=== PATIENT | female | born 1970 | race Caucasian/White ===

== ENCOUNTER 2024-05-08 09:08 | Emergency (ER) | payer BC ==
[2024-05-08] MEDS ORDERED: LABETALOL 20 MG/4ML SYRINGE IV ONE (09:38)
[2024-05-08 09:54] LABS: Absolute Lymphocytes (CBC) 1.6 K/uL (0.7-4.9); Absolute Monocytes 0.5 K/uL (0.1-1.3); Absolute Neutrophil 5.3 K/uL (1.8-8.0); Basophils % 0.6 % (0-1.3); Eosinophils % 0.1 % (0-4.4); Hematocrit 43.6 % (36.0-45.0); Hemoglobin 15.2 g/dL (12.0-15.0); Lymphocytes % 21.3 % (15.3-44.8); MCH 29.9 pg (27.0-35.0); MCHC 34.8 g/dL (32.0-36.0); MPV 7.5 fL (7.6-11.3); Monocytes % 6.2 % (3.3-12.3); Neutrophils % 71.8 % (41.7-73.7); Nucleated Red Blood Cells % 0.1 % (0-0); Platelets 253 thou/uL (152-406); RBC Red Blood Cell Count 5.07 M/uL (3.86-4.86); Red Cell Distribution Width 13.6 % (12.1-15.2)
--- NOTE | 2024-05-08 10:07 | RAD REPORT ---
EXAM DESCRIPTION: CT - Head Brain Wo Cont - 05/08/2024 9:48 am CLINICAL HISTORY: HEADACHE COMPARISON: No comparisons TECHNIQUE: All CT scans are performed using dose optimization technique as appropriate and may inclu de automated exposure control or mA/KV adjustment according to patient size. FINDINGS: No intracranial hemorrhage, hydrocephalus or extra-axial fluid collection.No areas of brai n edema or evidence of midline shift. The paranasal sinuses and mastoids are clear. The calvarium is intact. IMPRESSION: No acute intracranial abnormality.
--- NOTE | 2024-05-08 10:07 | RAD REPORT ---
EXAM DESCRIPTION: RAD - Chest Single View - 05/08/2024 10:00 am CLINICAL HISTORY: PALPITATIONS COMPARISON: CHEST SINGLE VIEW dated 02/03/2010 FINDINGS: Lines: None. Lungs: No evidence of edema or pneumonia. Pleural: No significant pleural effusions or pneumothorax. Cardiac: The heart size is within normal limits. Mediastinum: Within normal limits. Bones: No acute fractures. Other: None IMPRESSION: No acute cardiopulmonary disease.
[2024-05-08 10:43] LABS: Anion Gap 6.8 mEq/L (5.0-15.0); Potassium 3.8 mEq/L (3.5-5.1); Troponin High Sensitivity 7.1 pg/mL (<58.9)
--- NOTE | 2024-05-08 11:11 | ER ---
Nurse's Notes [facility] Name: Coral Escoto Age: 53 yrs Sex: Female : 1970 Arrival Date: 05/08/2024 Time: 09:08 Bed 19 Private MD: Diagnosis: Essential (primary) hypertension;Headache;Palpitations Presentation: 05/08 09:30 Chief complaint: Patient states: she had just left her dr office with high blood ap3 pressure and elevated heart rate. patient also reports memory issues like fogginess for a few days, vision changes for three weeks and reports her bilateral hands and feet feeling tingly intermittently for an unknown amount of time. Coronavirus screen: At this time, the client does not indicate any symptoms associated with coronavirus-19. Ebola Screen: No symptoms or risks identified at this time. Initial Sepsis Screen: Does the patient meet any 2 criteria? HR > 90 bpm. Does the patient have a suspected source of infection? No. Patient's initial sepsis screen is negative. Risk Assessment: Do you want to hurt yourself or someone else? Patient reports no desire to harm self or others. Onset of symptoms is unknown. 09:30 Method Of Arrival: Ambulatory ap3 09:30 Acuity: JAX 2 ap3 Triage Assessment: 09:32 General: Appears in no apparent distress. Behavior is calm, cooperative, appropriate ap3 for age. Pain: Complains of pain in generalized body discomfort. Neuro: Level of Consciousness is awake, alert, obeys commands, Oriented to person, place, time, situation, Gait is steady, Speech is normal. Neuro: Reports blurred vision since unknown amount of time brain fog. Cardiovascular: Patient's skin is warm and dry. Respiratory: Airway is patent Respiratory effort is even, unlabored, Respiratory pattern is regular, symmetrical. Historical: - Allergies: 09:31 Tape; ap3 - Home Meds: 09:31 Lexapro Oral [Active]; ap3 - PMHx: 09:31 Hypertensive disorder; Hypothyroidism; Anxiety; ap3 - Immunization history:: Client reports receiving the 2nd dose of the Covid vaccine. - Social history:: Smoking status: Patient reports the use of cigarette tobacco products, smokes two packs cigarettes per day. Screenin:[facility] ED Fall Risk Assessment (Adult) History of falling in the last 3 months, db including since admission No falls in past 3 months (0 pts) Confusion or Disorientation No (0 pts) Intoxicated or Sedated No (0 pts) Impaired Gait No (0 pts) Mobility Assist Device Used No (0 pt) Altered Elimination No (0 pt) Score/Fall Risk Level 0 - 2 = Low Risk Oriented to surroundings, Maintained a safe environment. Abuse screen: Denies threats or abuse. Denies injuries from another. Nutritional screening: No deficits noted. Tuberculosis screening: No symptoms or risk factors identified. Assessment: 09:57 General: Appears in no apparent distress. comfortable, well groomed, well developed, kc6 Behavior is calm, cooperative, appropriate for age. Pain: Denies pain. Neuro: Level of Consciousness is awake, alert, obeys commands, Oriented to person, place, time, situation, Appropriate for age Reports blurred vision dizziness, paresthesias in right arm and left arm. Cardiovascular: Reports palpitations, Denies chest pain, shortness of breath, Capillary refill < 3 seconds. Respiratory: Airway is patent Trachea midline Respiratory effort is even, unlabored, Respiratory pattern is regular, symmetrical. GI: No signs and/or symptoms were reported involving the gastrointestinal system. : No signs and/or symptoms were reported regarding the genitourinary system. EENT: No signs and/or symptoms were reported regarding the EENT system. Derm: No signs and/or symptoms reported regarding the dermatologic system. Skin is intact, is healthy with good turgor, Skin is pink, warm \T\ dry. Musculoskeletal: No signs and/or symptoms reported regarding the musculoskeletal system. Circulation, motion, and sensation intact. Capillary refill < 3 seconds, Range of motion: intact in all extremities. 10:51 Reassessment: Patient appears in no apparent distress at this time. No changes from kc6 previously documented assessment. Patient and/or family updated on plan of care and expected duration. Pain level reassessed. Patient is alert, oriented x 3, equal unlabored respirations, skin warm/dry/pink. 11:17 Reassessment: Patient appears in no apparent distress at this time. Patient states db feeling better. Patient states symptoms have improved. Vital Signs: 09:30 BP 199 / 104; Pulse 101; Resp 19; Pulse Ox 98% on R/A; Weight 55.34 kg; ap3 09:30 BP 175 / 92; Pulse 90; Resp 16; Pulse Ox 95% on R/A; db 10:10 BP 178 / 98; kc6 10:51 BP 171 / 91; Pulse 70; Resp 18 S; Pulse Ox 97% on R/A; kc6 ED Course: 09:12 Patient arrived in ED. mg5 09:13 Kye Padilla DO is Attending Physician. ms3 09:16 Erika Tran, RN is Primary Nurse. kc6 09:31 Triage completed. ap3 09:34 Inserted saline lock: 20 gauge in right forearm, using aseptic technique. Blood db collected. Flushed with 10 mL NS. 09:35 Arm band placed on right wrist. ap3 09:35 Patient has correct armband on for positive identification. Bed in low position. Call ap3 light in reach. Side rails up X 1. Adult w/ patient. Client placed on continuous cardiac and pulse oximetry monitoring. NIBP monitoring applied. microgrinder operator on. Pulse ox on. NIBP on. 09:50 CT Head Brain wo Cont In Process Unspecified. EDMS 10:01 XRAY Chest (1 view) In Process Unspecified. EDMS 11:17 No provider procedures requiring assistance completed. IV discontinued, intact, db bleeding controlled, No redness/swelling at site. 11:17 Provided Education on: DISCHARGE AND FOLLOWUP. db Administered Medications: 09:56 Not Given (Hemodynamic Parameters): mg IV at calculated rate once kc6 Medication: 09:51 VIS not applicable for this client. db Outcome: 11:11 Discharge ordered by MD. ms3 11:17 Discharged to home ambulatory, with family, db 11:17 Condition: stable 11:17 Discharge instructions given to patient, family, Instructed on discharge instructions, follow up and referral plans. 11:18 Patient left the ED. db Signatures: Dispatcher [employer] EDMS Caryl Doan RN RN ap3 Kye Padilla DO DO ms3 Erika Tran, RN Blanca Lees RN RN Sofi Hernandez mg5
--- NOTE | 2024-05-08 11:11 | EDPHYS ---
Physician Documentation [facility] Name: Coral Escoto Age: 53 yrs Sex: Female : 1970 Arrival Date: 05/08/2024 Time: 09:08 Bed 19 Private MD: ED Physician Kye Padilla HPI: 05/08 11:13 This 53 yrs old Female presents to ER via Ambulatory with complaints of Memory Loss, ms3 High Blood Pressure, Dizziness. 11:13 53-year-old female with past medical history of hypertension, hypothyroidism, anxiety ms3 presents to the emergency department for headache, palpitations, nausea that been ongoing for 2 days. Patient denies shortness of breath. Patient states her headache is a 3/10. She denies any alleviating or inciting factors. Historical: - Allergies: :31 Tape; ap3 - Home Meds: :31 Lexapro Oral [Active]; ap3 - PMHx: 09:31 Hypertensive disorder; Hypothyroidism; Anxiety; ap3 - Immunization history:: Client reports receiving the 2nd dose of the Covid vaccine. - Social history:: Smoking status: Patient reports the use of cigarette tobacco products, smokes two packs cigarettes per day. ROS: 11:13 Constitutional: Negative for fever, and chills. Neck: Negative for injury, pain, and ms3 swelling, Respiratory: Negative for shortness of breath, cough, wheezing, and pleuritic chest pain, 11:13 MS/Extremity: Negative for injury and deformity, Skin: Negative for injury, rash, and discoloration, 11:13 Cardiovascular: Positive for palpitations, Exam: 10:42 ECG was reviewed by the Attending Physician. ms3 11:13 Radiologist reports: CT head negative ms3 11:13 Constitutional: This is a well developed, well nourished patient who is awake, alert, and in no acute distress. Head/Face: Normocephalic, atraumatic. Neck: Trachea midline, no cervical lymphadenopathy. Supple, full range of motion without nuchal rigidity, or vertebral point tenderness. No Meningismus. Chest/axilla: Normal chest wall appearance and motion. Nontender with no deformity. Cardiovascular: Regular rate and rhythm with a normal S1 and S2. No gallops, murmurs, or rubs. Normal PMI, no JVD. No pulse deficits. Respiratory: Lungs have equal breath sounds bilaterally, clear to auscultation and percussion. No rales, rhonchi or wheezes noted. No increased work of breathing, no retractions or nasal flaring. Abdomen/GI: Soft, non-tender, with normal bowel sounds. No distension or tympany. No guarding or rebound. No evidence of tenderness throughout. Skin: Warm, dry with normal turgor. Normal color with no rashes, no lesions, and no evidence of cellulitis. MS/ Extremity: Pulses equal, no cyanosis. Neurovascular intact. Full, normal range of motion. Vital Signs: 09:30 BP 199 / 104; Pulse 101; Resp 19; Pulse Ox 98% on R/A; Weight 55.34 kg; ap3 09:30 BP 175 / 92; Pulse 90; Resp 16; Pulse Ox 95% on R/A; db 10:10 BP 178 / 98; kc6 10:51 BP 171 / 91; Pulse 70; Resp 18 S; Pulse Ox 97% on R/A; kc6 MDM: 09:47 Patient medically screened. ms3 11:12 Differential diagnosis: metabolic disorder, ICH vs Arrhythmia vs PA. TNKase ms3 (Tenecteplase) Screening: Not Applicable. Data reviewed: vital signs, nurses notes, lab test result(s), EKG, radiologic studies, and as a result, I will discharge patient. Independent interpretation of the following test(s) in the Emergency Department EKG: See my EKG interpretation above X-Ray: My interpretation is CXR image reviewed by me does not reveal pulmonary edema. Care significantly affected by the following chronic conditions: Hypertension. Counseling: I had a detailed discussion with the patient and/or guardian regarding the historical points, exam findings, and any diagnostic results supporting the discharge/admit diagnosis, lab results, radiology results, the need for outpatient follow up, to return to the emergency department if symptoms worsen or persist or if there are any questions or concerns that arise at home. Special discussion: Based on the patient's history, exam, and Dx evaluation, there is no indication for emergent intervention or inpatient Tx. It is understood by the patient/guardian that if the Sx's persist or worsen they need to return immediately for re-evaluation. ED course: Discussed labs and imaging with patient and her . Patient to follow-up with her primary care physician in 2 to 3 days. Patient understands and agrees with plan. All questions were answered. Return precautions discussed include worsening symptoms, or any other concerns. 05/08 09:36 Order name: Basic Metabolic Panel; Complete Time: 10:43 ms3 05/08 09:36 Order name: CBC with Diff; Complete Time: 10:28 ms3 05/08 09:36 Order name: Magnesium; Complete Time: 10:43 ms3 05/08 09:36 Order name: Troponin HS; Complete Time: 10:43 ms3 05/08 09:36 Order name: XRAY Chest (1 view); Complete Time: 10:28 ms3 05/08 09:36 Order name: CT Head Brain wo Cont; Complete Time: 10:28 ms3 05/08 09:36 Order name: EKG; Complete Time: 09:36 ms3 05/08 09:36 Order name: Cardiac monitoring; Complete Time: 09:38 ms3 05/08 09:36 Order name: EKG - Nurse/Tech; Complete Time: 09:38 ms3 05/08 09:36 Order name: IV Saline Lock; Complete Time: 09:38 ms3 05/08 09:36 Order name: Labs collected and sent; Complete Time: 09:38 ms3 05/08 09:36 Order name: O2 Per Protocol; Complete Time: 09:38 ms3 05/08 09:36 Order name: O2 Sat Monitoring; Complete Time: 09:38 ms3 05/08 10:11 Order name: Labs - recollect needed: recollect light green top; Complete Time: 10:23 bd EC:42 Rate is 86 beats/min. Rhythm is regular. QRS [place] is Normal. MD interval is normal. QRS ms3 interval is normal. Clinical impression: Normal ECG. Interpreted by me. Reviewed by me. Administered Medications: 09:56 Not Given (Hemodynamic Parameters): mg IV at calculated rate once kc6 Disposition Summary: 05/08/24 11:11 Discharge Ordered Notes: Location: Home ms3 Condition: Stable ms3 Diagnosis - Essential (primary) hypertension ms3 - Headache ms3 - Palpitations ms3 Followup: ms3 - With: Private Physician - When: 2 - 3 days - Reason: Recheck today's complaints Discharge Instructions: - Discharge Summary Sheet ms3 - General Headache Without Cause ms3 - Hypertension, Adult ms3 - Palpitations ms3 - DASH Eating Plan ms3 Forms: - Medication Reconciliation Form ms3 - Antibiotic Education ms3 - Prescription Opioid Use ms3 - Patient Portal Instructions ms3 - Leadership Thank You Letter ms3 Signatures: Dispatcher [employer] Nava Vincent Amanda, RN RN ap3 Kye Padilla DO DO ms3 Erika Tran RN kc6
[2024-05-08 11:45] VITALS: BP 171/91; O2SAT 97
== END 2024-05-08 11:18 | disposition home or self-care (01) ==
LOC: ER 09:08
DX: I10 Essential (primary) hypertension (principal); R51.9 Headache, unspecified; R00.2 Palpitations; F41.9 Anxiety disorder, unspecified; F17.210 Nicotine dependence, cigarettes, uncomplicated
CPT/HCPCS: 36415; 70450; 71045; 80048; 83735; 84484; 85025